=== PATIENT | female | born 1960 | race Caucasian/White ===

== ENCOUNTER 2025-02-13 09:45 | Emergency (ER) | payer BC ==
[2025-02-13] MEDS ORDERED: Sodium Chloride 0.9% 10 ML Syringe FLUSH PRN (09:51)
[2025-02-13] MEDS: fentaNYL 50 MCG/ML SDV IVPUSH ONE (10:04)
[2025-02-13] MEDS ORDERED: Naloxone 0.4 MG/ML SDV IVPUSH PRN (10:16)
[2025-02-13] MEDS: Ketorolac 15 MG/ML SDV IVPUSH ONE ×2 (11:32→13:32)
[2025-02-13] MEDS: Ketorolac 30 MG/ML SDV IM ONE (17:50)
== END 2025-02-13 15:55 | disposition home or self-care (01) ==
LOC: VM.ED 09:45
DX: G89.18 Other acute postprocedural pain (principal); M25.562 Pain in left knee; Z96.652 Presence of left artificial knee joint; Z88.5 Allergy status to narcotic agent; Z79.899 Other long term (current) drug therapy
CPT/HCPCS: 96374; 96375; 96376; 99283; A9270; J1885; J3010; J1171